=== PATIENT | female | born 1950 | race Caucasian/White ===

== ENCOUNTER 2017-09-15 16:13 | Emergency (ER) | payer OTHER, MEDICARE ==
[~2017-09-15] VITALS: Ht 160 cm; Wt 80.0 kg
[~2017-09-15 16:13] MED LIST: ASPI81TA82 PO; BUPR150T3 PO; DEPA500T3 PO; GLUCTAB PO; HYDR-2768 PO; INSU1INJ14 SQ; NOVOINJ3 SQ; PRIN10TA PO; SIMV20 PO; VITA400C28 PO; XANA1TAB6 PO
[2017-09-15 16:36] VITALS: BP 198/84; PULSE 87; RESP 18; TEMP 98; O2SAT 98
[2017-09-15] MEDS ORDERED: NOVOLOGP2 SQ (16:54)
[2017-09-15] MEDS ORDERED: HYDR25TA5 PO (16:54)
[2017-09-15] MEDS ORDERED: ALPR.5 PO (16:54)
[2017-09-15] MEDS ORDERED: SIMV20TA PO (16:54)
[2017-09-15] MEDS ORDERED: LISI-515 PO (16:54)
[2017-09-15] MEDS ORDERED: DEPA500T3 PO (16:54)
[2017-09-15] MEDS ORDERED: INSU1INJ14 SQ (16:54)
[2017-09-15] MEDS ORDERED: ASPI-516 CHEW (16:54)
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
[2017-09-15] MEDS ORDERED: oxyCODONE/ACETAMINOPHEN 5 MG/325 MG TAB PO ONE (17:00)
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
[2017-09-15 17:33] VITALS: BP 172/75; PULSE 79; RESP 18; O2SAT 95
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
[2017-09-15] MEDS ORDERED: HYDR-3516 PO (17:53)
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
== END 2017-09-15 18:16 | disposition home or self-care (01) ==
LOC: NEPD 16:13
DX: S16.1XXA Strain of muscle, fascia and tendon at neck level, initial encounter (principal); M19.90 Unspecified osteoarthritis, unspecified site; F31.9 Bipolar disorder, unspecified; F41.9 Anxiety disorder, unspecified; E78.00 Pure hypercholesterolemia, unspecified; E11.9 Type 2 diabetes mellitus without complications; I10 Essential (primary) hypertension; F41.0 Panic disorder [episodic paroxysmal anxiety]; V43.52XA Car driver injured in collision with other type car in traffic accident, initial encounter
CPT/HCPCS: 70450; 71045; 72125; 72170; 73060; 99285